=== PATIENT | male | born 1985 | race Caucasian/White ===

== ENCOUNTER → 2019-04-12 | Outpatient (CLI) | payer OTHER ==
[~2019-04-12] MED LIST: ACHD5005 PO; CYCL10TA9 PO; NAPR-243 PO
--- NOTE | 2019-04-12 17:13 | Diagnostic Imaging Report ---
INDICATION: Pain and numbness. FINDINGS: There is no pathologically displaced fat pad. The radial head and neck are intact. Articular surface is smooth. The bony alignment is normal. No radiodense loose body. IMPRESSION: Negative. Dictated by: Dictated on workstation # [id number]
== END ==
LOC: RAD 17:00
PROVIDERS: ATTEND Nurse Practitioner Family
DX: M25.522 Pain in left elbow (principal); R20.0 Anesthesia of skin
CPT/HCPCS: 73080

== ENCOUNTER 2021-03-07 16:09 | Emergency (ER) | payer OTHER ==
[~2021-03-07] VITALS: Ht 185.4 cm; Wt 90.0 kg
[2021-03-07] MEDS ORDERED: RT-ALBUTEROL/IPRATROPIUM 3 ML (DUONEB) VIAL INH ONE (16:15)
[2021-03-07] MEDS ORDERED: methylPREDNISolone 125 MG (Solu-MEDROL) VIAL IV STA (16:15)
--- NOTE | 2021-03-07 16:15 | ED Respiratory ---
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 The fumes got to him and he started having some shortness of breath and pain on inspiration in his chest. He does not have a history of lung disease nor does he smoke or vape. He does not have a fever, productive cough, rash or skin contact. Allergies and Home Medications Allergies Coded Allergies: No Known Drug Allergies (Unverified , 07/05/13) Home Medications Albuterol Sulfate 1 Puff Puff, 2 PUFF IH Q4H PRN for WHEEZING 1 PUFF = 90 MCG Prescribed by: NAOMI CASTILLO on 03/07/211834 Cyclobenzaprine Hcl 10 Mg Tablet, 1 EACH PO Q8HR PRN Prescribed by: KELLEE SAM on 07/05/13 0851 Hydrocodone Bit/Acetaminophen 1 Each Tablet, 1-2 EACH PO Q6H PRN Prescribed by: KELLEE SAM on 07/05/13 0851 Methylprednisolone 4 Mg Tab.ds.pk, 4 MG PO UD PER DOSE PACK INSTRUCTIONS Prescribed by: NAOMI CASTILLO on 03/07/211834 Naproxen 500 Mg Tablet, 1 EACH PO BID PRN Prescribed by: KELLEE SAM on 07/05/13 0851 Patient Home Medication List Home Medication List Reviewed: Yes Review of Systems Review of Systems Constitutional: No chills, No fever EENTM: No ear discharge, No ear pain Respiratory: cough (For the past 3 weeks); No phlegm; short of breath (Mild); No wheezing Cardiovascular: see HPI, chest pain; No edema, No Hx of Intervention, No palpitations, No syncope, No vascular heart diseas Gastrointestinal: No abdominal pain, No constipation Genitourinary: No discharge, No dysuria Musculoskeletal: No back pain, No joint pain Psychiatric/Neurological: Denies Anxiety, Denies Depressed All Other Systems Reviewed Negative Unless Noted: Yes Past Tregyif-Nlwtvl-Mcpyze Hx Patient Social History Drug of Choice: Denies Smoking Status: Never a Smoker Family Medical History No Pertinent Family Hx Physical Exam Vital Signs - First Documented 6/23/21 16:09 Temp 36.0 Pulse 103 Resp 18 B/P (MAP) 100/ Pulse Ox 94 O2 Delivery Room Air Capillary Refill : Height: '" Weight: 165lbs. oz. 74.898746bd; BMI Method: General Appearance: WD/WN, mild distress Eyes: Bilateral Eye Normal Inspection, Bilateral Eye PERRL, Bilateral Eye EOMI HEENT: PERRL/EOMI, normal ENT inspection, pharynx normal Neck: non-tender, full range of motion, supple, normal inspection Respiratory: no respiratory distress, no accessory muscle use, wheezing (Scant expiratory at the tops) Cardiovascular: normal peripheral pulses, regular rate, rhythm Gastrointestinal: normal bowel sounds, non tender, soft Extremities: normal inspection, normal capillary refill Neurologic/Psychiatric: alert, normal mood/affect, oriented x 3 Skin: normal color, warm/dry Progress/Results/Core Measures Suspected Sepsis SIRS Temperature: Pulse: Respiratory Rate: Laboratory Tests 03/07/21 16:32: White Blood Count 7.6 Blood Pressure / Mean: Laboratory Tests 03/07/21 16:32: Creatinine 1.33H, Platelet Count 295, Total Bilirubin 0.6 Results/Orders Lab Results Laboratory Tests Test 03/07/21 16:32 03/07/21 17:27 Range/Units White Blood Count 7.6 4.3-11.0 10^3/uL Red Blood Count 5.07 4.30-5.52 10^6/uL Hemoglobin 15.1 13.3-17.7 g/dL Hematocrit 45 40-54 % Mean Corpuscular Volume 89 80-99 fL Mean Corpuscular Hemoglobin 30 25-34 pg Mean Corpuscular Hemoglobin Concent 34 32-36 g/dL Red Cell Distribution Width 12.6 10.0-14.5 % Platelet Count 295 130-400 10^3/uL Mean Platelet Volume 9.9 9.0-12.2 fL Immature Granulocyte % (Auto) 0 % Neutrophils (%) (Auto) 64 42-75 % Lymphocytes (%) (Auto) 23 12-44 % Monocytes (%) (Auto) 10 0-12 % Eosinophils (%) (Auto) 2 0-10 % Basophils (%) (Auto) 1 0-10 % Neutrophils # (Auto) 4.9 1.8-7.8 10^3/uL Lymphocytes # (Auto) 1.8 1.0-4.0 10^3/uL Monocytes # (Auto) 0.8 0.0-1.0 10^3/uL Eosinophils # (Auto) 0.1 0.0-0.3 10^3/uL Basophils # (Auto) 0.0 0.0-0.1 10^3/uL Immature Granulocyte # (Auto) 0.0 0.0-0.1 10^3/uL Sodium Level 141 135-145 MMOL/L Potassium Level 3.7 3.6-5.0 MMOL/L Chloride Level 104 98-107 MMOL/L Carbon Dioxide Level 23 21-32 MMOL/L Anion Gap 14 5-14 MMOL/L Blood Urea Nitrogen 16 7-18 MG/DL Creatinine 1.33 H 0.60-1.30 MG/DL Estimat Glomerular Filtration Rate 60 BUN/Creatinine Ratio 12 Glucose Level 88 70-105 MG/DL Calcium Level 9.0 8.5-10.1 MG/DL Corrected Calcium 8.5-10.1 MG/DL Total Bilirubin 0.6 0.1-1.0 MG/DL Aspartate Amino Transf (AST/SGOT) 22 5-34 U/L Alanine Aminotransferase (ALT/SGPT) 43 0-55 U/L Alkaline Phosphatase 88 40-136 U/L Total Protein 7.5 6.4-8.2 GM/DL Albumin 4.6 H 3.2-4.5 GM/DL Blood Gas Puncture Site RT RAD Blood Gas Patient Temperature 36 Arterial Blood pH 7.40 7.37-7.43 Arterial Blood Partial Pressure CO2 38 35-45 MMHG Arterial Blood Partial Pressure O2 81 79-93 MMHG Arterial Blood HCO3 23 23-27 MMOL/L Arterial Blood Total CO2 24.6 21.0-31.0 MMOL/L Arterial Blood Oxygen Saturation 97 94-100 % Arterial Blood Base Excess -1.1 -2.5-2.5 MMOL/L Lukas Test YES-POS Blood Gas Ventilator Setting NO Blood Gas Inspired Oxygen ROOM AIR My Orders Orders - NAOMI CASTILLO Ekg Tracing (03/07/21 16:15) Chest 1 View, Ap/Pa Only (03/07/21 16:15) Cbc With Automated Diff (03/07/21 16:15) Comprehensive Metabolic Panel (03/07/21 16:15) Albuterol/Ipra Inhalation Soln (Duoneb I (03/07/21 16:15) Methylprednisolone Sod Succ (Solu-Medrol (03/07/21 16:15) Svn Small Volume Nebulizer (03/07/21 16:15) Communication For Respiratory (03/07/21 16:22) Arterial Blood Gas (03/07/21 17:21) Arterial Blood Draw (03/07/21 ) Medications Given in ED Current Medications Medications Dose Ordered Sig/Arcelia Route Start Time Stop Time Status Last Admin Dose Admin Albuterol/ Ipratropium 3 ml ONCE ONCE INH 03/07/21 16:15 03/07/21 16:21 DC 03/07/21 17:19 3 ML Vital Signs/I&O 03/07/21 03/07/21 03/07/21 16:09 17:20 18:49 Temp 36.0 Pulse 103 89 Resp 18 18 B/P (MAP) 100/ 136/89 Pulse Ox 94 96 95 O2 Delivery Room Air Room Air Room Air Capillary Refill : Progress Note #1: Time: 17:00 Progress Note Discussed the case with poison control and their recommendations were to consider inhalers if indicated and steroids for bronchospasms. Chest x-ray, O2 if needed. Monitor the patient until he is asymptomatic. We can consider nebulizing some sodium bicarb. The patient symptoms are mild so we ordered some DuoNeb, Solu-Medrol and some IV fluids Progress Note #2: Time: 18:32 Progress Note The patient is back to his baseline. He is not having any pain or wheezing. We will give him a spacer, prescription for albuterol and a Medrol Dosepak. Return precautions were discussed. ECG Initial ECG Impression Date: Mar 07, 2021 Initial ECG Impression Time: 16:28 Initial ECG Rate: 85 Initial ECG Rhythm: Normal Sinus Initial ECG Intervals: Normal Initial ECG Impression: Normal Initial ECG Comparisson: No Previous ECG Available Comment Normal sinus rhythm without clinically relevant ST elevation or depression Diagnostic Imaging Diagonstic Imaging: Xray Plain Films/CT/US/NM/MRI: chest Comments [facility], [place] NAME: [facility] REC#: [id number] PT STATUS: REG ER : 1985 PHYSICIAN: NAOMI CASTILLO MD ADMIT DATE: 03/07/21/ER Draft Date of Exam:03/07/21 CHEST 1 VIEW, AP/PA ONLY EXAM: CHEST 1 VIEW, AP/PA ONLY INDICATION: Inhalation of chemical. COMPARISON: Chest radiograph from 07/05/2013. FINDINGS: Normal heart size and pulmonary vascularity. No dense consolidation, pleural effusion or pneumothorax. No acute osseous findings. IMPRESSION: Negative chest. Dictated on workstation # [id number] Dict: 03/07/21 1704 Trans: 03/07/21 1708 [id number] Interpreted by: ABI ABAD MD Electronically signed by: Reviewed: Reviewed by Me Departure Impression Primary Impression: Inhalation injury due to chemical Disposition: 01 HOME, SELF-CARE Condition: Improved Departure-Patient Inst. Decision time for Depature: 18:33 Referrals: DALLAS GIL DO (PCP/Family) Primary Care Physician Patient Instructions: Smoke Inhalation (DC) Add. Discharge Instructions: Drink plenty fluids. Avoid dust or smoke or other chemical inhalation injuries in the near future. Promptly return to the ER for worsening symptoms. Follow-up with your doctor in the next week for recheck. Medrol Dosepak take as described. Albuterol 2 puffs through the spacer every 4 hours as needed for wheezing, coughing fits or other shortness of air. Scripts Methylprednisolone (Methylprednisolone Dose Pack) 4 Mg Tab.ds.pk 4 MG PO UD for 6 Days, #21 PKG 0 Refills PER DOSE PACK INSTRUCTIONS Prov: NAOMI CASTILLO 03/07/21 Albuterol Sulfate (PROAIR HFA) 1 Puff Puff 2 PUFF IH Q4H PRN for WHEEZING, #1 EA 0 Refills 1 PUFF = 90 MCG Prov: NAOMI CASTILLO 03/07/21 Work/School Note: Work Release Form Date Seen in the Emergency Department: Mar 07, 2021 Return to Work: Mar 09, 2021 Restrictions: No Restrictions Copy Copies To 1: DALLAS GIL TITUS J Mar 07, 2021 16:15
[2021-03-07 16:41] LABS: BASOPHILS % (AUTO) 1 % (0-10); EOSINOPHILS # (AUTO) 0.1 10^3/uL (0.0-0.3); EOSINOPHILS % (AUTO) 2 % (0-10); HEMATOCRIT 45 % (40-54); HEMOGLOBIN 15.1 g/dL (13.3-17.7); LYMPHOCYTES # (AUTO) 1.8 10^3/uL (1.0-4.0); LYMPHOCYTES % (AUTO) 23 % (12-44); MEAN CORPUSCULAR HEMOGLOBIN 30 pg (25-34); MEAN CORPUSCULAR HGB CONC 34 g/dL (32-36); MEAN CORPUSCULAR VOLUME 89 fL (80-99); MEAN PLATELET VOLUME 9.9 fL (9.0-12.2); MONOCYTES # (AUTO) 0.8 10^3/uL (0.0-1.0); MONOCYTES % (AUTO) 10 % (0-12); NEUTROPHILS # (AUTO) 4.9 10^3/uL (1.8-7.8); NEUTROPHILS % (AUTO) 64 % (42-75); PLATELET COUNT 295 10^3/uL (130-400); WHITE BLOOD COUNT 7.6 10^3/uL (4.3-11.0)
[2021-03-07 16:52] LABS: ALBUMIN 4.6 GM/DL (3.2-4.5); CHLORIDE 104 MMOL/L (98-107); POTASSIUM 3.7 MMOL/L (3.6-5.0); SODIUM 141 MMOL/L (135-145)
[2021-03-07 16:55] LABS: GLUCOSE 88 MG/DL (70-105); TOTAL PROTEIN 7.5 GM/DL (6.4-8.2)
[2021-03-07 16:56] LABS: CARBON DIOXIDE 23 MMOL/L (21-32)
[2021-03-07 16:57] LABS: BILIRUBIN,TOTAL 0.6 MG/DL (0.1-1.0)
[2021-03-07 16:58] LABS: ALKALINE PHOSPHATASE 88 U/L (40-136); CREATININE SERUM 1.33 MG/DL (0.60-1.30); GFR ESTIMATED 60
[2021-03-07 17:00] LABS: BUN/CREATININE RATIO 12
[2021-03-07 17:01] LABS: ALANINE AMINOTRANSFERASE 43 U/L (0-55)
--- NOTE | 2021-03-07 17:08 | Diagnostic Imaging Report ---
EXAM: CHEST 1 VIEW, AP/PA ONLY INDICATION: Inhalation of chemical. COMPARISON: Chest radiograph from 07/05/2013. FINDINGS: Normal heart size and pulmonary vascularity. No dense consolidation, pleural effusion or pneumothorax. No acute osseous findings. IMPRESSION: Negative chest. Dictated by: Dictated on workstation # [id number]
[2021-03-07 17:30] LABS: ABG BASE EXCESS -1.1 MMOL/L (-2.5-2.5); ABG OXYGEN SATURATION 97 % (94-100); ABG PCO2 38 MMHG (35-45); ABG PO2 81 MMHG (79-93); ABG TCO2 24.6 MMOL/L (21.0-31.0)
[2021-03-07 17:34] LABS: ALLENS TEST YES-POS; INSPIRED O2 ROOM AIR; PATIENT TEMP 36; VENTILATOR NO
[2021-03-07] MEDS ORDERED: METH4TAB10 PO (18:35)
[2021-03-07] MEDS ORDERED: RT-ALBUINH IH (18:35)
[2021-03-07 18:49] VITALS: BP 136/89
== END 2021-03-07 18:49 | disposition home or self-care (01) ==
LOC: EDUNIT# 16:09 → ER 16:10
DX: J70.5 Respiratory conditions due to smoke inhalation (principal); Z79.52 Long term (current) use of systemic steroids
CPT/HCPCS: 36415; 36600; 71045; 80053; 82805; 85025; 93005; 94640

== ENCOUNTER 2022-04-16 14:37 | Emergency (ER) | payer OTHER ==
[~2022-04-16] VITALS: Ht 187.9 cm; Wt 91.6 kg
[~2022-04-16 14:37] MED LIST changes: +METH4TAB10 PO; +RT-ALBUINH IH
--- NOTE | 2022-04-16 14:49 | ED Neurological Problem ---
General Chief Complaint: Neuro-Stroke Like Symptoms Stated Complaint: LEFT EYE BLURRY - LEFT SIDE OF FACE NUMBNESS Source: patient Exam Limitations: no limitations History of Present Illness Date Seen by Provider: Apr 16, 2022 Time Seen by Provider: 14:42 Initial Comments Patient is a 37-year-old male who presents to the emergency department today, chief complaint visual loss lateral half of his left eye/visual changes over the course of the last 10 hours, paresthesias of the left face and shoulder and a feeling like his left face is drooping. Patient states that he woke up with symptoms this morning around 4 AM. They have waxed and waned since then. He has had a mild headache. He did take some ibuprofen this afternoon. He has never had symptoms like this before. He states at one point during the course of the day he had complete visual field loss of the left eye. He has no chronic longstanding medical conditions, no hypertension, diabetes. He is not a smoker. No family history of cardiovascular disease. No family history of stroke. He has had no recent illnesses. He states that he works in construction and has recently been having more intense leg cramps. This was at its peak on Friday. No fevers, chills. No productive cough. No nausea vomiting or diarrhea. He states his urine is mamta in color. No dysuria, urgency or frequency. No black or bloody stools. He did not take anything for the symptoms today. His primary care doctor is Dr. LIRA. At the time of my initial evaluation he is asymptomatic has no visual field complaints. He does continue to have a little paresthesia on the left side of his face. At no time today did not have any problem breathing, swallowing or speaking. All other review of systems reviewed and negative except as stated Timing/Duration: waxing and waning, other (10 hours) Severity: moderate Associated Symptoms: paresthesia (left face; "droopy" left face), vision changes Allergies and Home Medications Allergies Coded Allergies: No Known Drug Allergies (Unverified , 07/05/13) Patient Home Medication List Home Medication List Reviewed: Yes Albuterol Sulfate (Proair Hfa) 1 Puff Puff, 2 PUFF IH Q4H PRN for WHEEZING Prescribed by: NAOMI CASTILLO on 03/07/21 7622 Cyclobenzaprine Hcl (Cyclobenzaprine Hcl) 10 Mg Tablet, 1 EACH PO Q8HR PRN Prescribed by: KELLEE SAM on 07/05/13850 Hydrocodone Bit/Acetaminophen (Lortab 5 Mg Tablet) 1 Each Tablet, 1-2 EACH PO Q6H PRN Prescribed by: KELLEE SAM on 07/05/13850 Methylprednisolone (Methylprednisolone Dose Pack) 4 Mg Tab.ds.pk, 4 MG PO UD Prescribed by: NAOMI CASTILLO on 03/07/211834 Naproxen (Naprosyn) 500 Mg Tablet, 1 EACH PO BID PRN Prescribed by: KELLEE SAM on 07/05/13850 Review of Systems Review of Systems Constitutional: see HPI Eyes: Blurred Vision Ears, Nose, Mouth, Throat: no symptoms reported Respiratory: no symptoms reported Cardiovascular: no symptoms reported Gastrointestinal: no symptoms reported Genitourinary: no symptoms reported Musculoskeletal: no symptoms reported Skin: no symptoms reported Psychiatric/Neurological: Headache (mild), Tingling (left face) All Other Systems Reviewed Negative Unless Noted: Yes Past Tnaxvif-Cdgukp-Kubrko Hx Past Medical History Surgeries: Yes Respiratory: No Cardiac: No Neurological: No Gastrointestinal: No Endocrine: No Family Medical History No Pertinent Family Hx Physical Exam Vital Signs Vital Signs - First Documented 04/16/22 14:39 Temp 36.4 Resp 15 B/P (MAP) 153/109 (124) Pulse Ox 98 O2 Delivery Room Air Capillary Refill : Height, Weight, BMI Height: '" Weight: 165lbs. oz. 74.282455qd; 26.00 BMI Method: General Appearance: WD/WN, no apparent distress HEENT: PERRL/EOMI, pharynx normal Neck: full range of motion, supple, normal inspection Respiratory: lungs clear, normal breath sounds, no respiratory distress, no accessory muscle use Cardiovascular: regular rate, rhythm, no murmur Peripheral Pulses: 2+ Radial Pulses (R), 2+ Radial Pulses (L) Gastrointestinal: normal bowel sounds, non tender, soft Extremities: normal range of motion, non-tender, normal inspection, no pedal edema, normal capillary refill Neurologic/Psychiatric: machine buffer II-XII nml as tested, no motor/sensory deficits, alert, normal mood/affect, oriented x 3 Crainal Nerves: normal hearing, normal speech, PERRL; No abnormal eye position, No abnormal pupil position, No abnormal speech, No facial asymmetry, No facial droop; facial paresthesias; No facial weakness, No gaze palsy Coordination/Gait: normal finger to nose Motor/Sensory: no motor deficit, no sensory deficit, no pronator drift Skin: normal color, warm/dry Stroke Onset of Symptoms Date of Onset of Symptoms: Apr 16, 2022 Time of Symptom Onset: 04:00 Onset of Symptoms: Yes NIH Stroke Scale Assessment Select: Initial Level of Consciousness: 0=Alert (0), Level of Consciousness- Questions: 0=Answers both month/age (0), LOC Commands: 0=Performs both tasks (0), Visual Wilkerson: 0=No visual loss (0), Facial Movement (Facial Paresis): 0=Normal symmetrical mnt (0), Motor Function-Arms Right: 0=No drift (0), Motor Function-Arms Left: 0=No drift (0), Motor Function-Legs Right: 0=No drift (0), Motor Function-Legs Left: 0=No drift (0), Limb Ataxia: 0=Absent (0), Sensory: 0=Normal:no loss (0), Best Language: 0=No aphasia (0), Dysarthria: 0=Normal (0), Extinction & Inattention: 0=No abnormality (0), Total: 0 Stroke Thrombolytic Exclusion Age 18 or Over: Yes Acute intenal hemorrhage: No History of CVA: No Uncontrolled Coagulation Defec: No Intracranial Hemorrhage: No Severe Hypertension: No GI or Bleed: No Subarachnoid Hemorrhage: No Intracranial Neoplasm/Aneurysm: No Oral Anticoagulants: No Surgery or Trauma: No Puncture of Non-Compressible V: No Recent CPR: No Diabetic Hemorrhagic Retinopat: No Organ Biopsy: No Recent Obstetric Delivery: No Glucose: No Significant Hepatic Dysfunctio: No NIH Stoke Scale >22: No Bacterial Endocarditis: No Pericarditis: No Improving Symptoms: No Platelets: No TPA Contraindication: Yes IV - TPa Received IV - TPa Procedure Performed?: No Progress/Results/Core Measures Results/Orders Lab Results Laboratory Tests Test 04/16/22 14:40 04/16/22 14:44 04/16/22 15:06 Range/Units White Blood Count 10.7 4.3-11.0 10^3/uL Red Blood Count 5.17 4.30-5.52 10^6/uL Hemoglobin 15.6 13.3-17.7 g/dL Hematocrit 46 40-54 % Mean Corpuscular Volume 89 80-99 fL Mean Corpuscular Hemoglobin 30 25-34 pg Mean Corpuscular Hemoglobin Concent 34 32-36 g/dL Red Cell Distribution Width 13.2 10.0-14.5 % Platelet Count 319 130-400 10^3/uL Mean Platelet Volume 9.6 9.0-12.2 fL Immature Granulocyte % (Auto) 0 % Neutrophils (%) (Auto) 68 42-75 % Lymphocytes (%) (Auto) 22 12-44 % Monocytes (%) (Auto) 8 0-12 % Eosinophils (%) (Auto) 2 0-10 % Basophils (%) (Auto) 1 0-10 % Neutrophils # (Auto) 7.2 1.8-7.8 X 10^3 Lymphocytes # (Auto) 2.4 1.0-4.0 X 10^3 Monocytes # (Auto) 0.8 0.0-1.0 X 10^3 Eosinophils # (Auto) 0.2 0.0-0.3 10^3/uL Basophils # (Auto) 0.1 0.0-0.1 10^3/uL Immature Granulocyte # (Auto) 0.0 0.0-0.1 10^3/uL Prothrombin Time 12.9 12.2-14.7 SEC INR Comment 0.9 0.8-1.4 Activated Partial Thromboplast Time 27 24-35 SEC D-Dimer < 0.27 0.00-0.49 UG/ML Sodium Level 140 135-145 MMOL/L Potassium Level 3.8 3.6-5.0 MMOL/L Chloride Level 105 98-107 MMOL/L Carbon Dioxide Level 23 21-32 MMOL/L Anion Gap 12 5-14 MMOL/L Blood Urea Nitrogen 21 H 7-18 MG/DL Creatinine 1.22 0.60-1.30 MG/DL Estimat Glomerular Filtration Rate 77 BUN/Creatinine Ratio 17 Glucose Level 101 70-105 MG/DL Calcium Level 9.2 8.5-10.1 MG/DL Corrected Calcium 8.5-10.1 MG/DL Total Bilirubin 1.1 H 0.1-1.0 MG/DL Aspartate Amino Transf (AST/SGOT) 20 5-34 U/L Alanine Aminotransferase (ALT/SGPT) 46 0-55 U/L Alkaline Phosphatase 77 40-136 U/L Total Creatine Kinase 157 30-200 U/L Troponin I < 0.028 <0.028 NG/ML Total Protein 7.4 6.4-8.2 GM/DL Albumin 4.7 H 3.2-4.5 GM/DL Glucometer 106 70-110 MG/DL Urine Color YELLOW Urine Clarity CLEAR Urine pH 6.0 5-9 Urine Specific Foley >=1.030 1.016-1.022 Urine Protein NEGATIVE NEGATIVE Urine Glucose (UA) NEGATIVE NEGATIVE Urine Ketones NEGATIVE NEGATIVE Urine Nitrite NEGATIVE NEGATIVE Urine Bilirubin NEGATIVE NEGATIVE Urine Urobilinogen 1.0 < = 1.0 MG/DL Urine Leukocyte Esterase NEGATIVE NEGATIVE Urine RBC (Auto) NEGATIVE NEGATIVE Urine RBC NONE /HPF Urine WBC NONE /HPF Urine Squamous Epithelial Cells 0-2 /HPF Urine Crystals NONE /LPF Urine Bacteria NEGATIVE /HPF Urine Casts NONE /LPF Urine Mucus NEGATIVE /LPF Urine Culture Indicated NO Urine Opiates Screen NEGATIVE NEGATIVE Urine Oxycodone Screen NEGATIVE NEGATIVE Urine Methadone Screen NEGATIVE NEGATIVE Urine Propoxyphene Screen NEGATIVE NEGATIVE Urine Barbiturates Screen NEGATIVE NEGATIVE Ur Tricyclic Antidepressants Screen NEGATIVE NEGATIVE Urine Phencyclidine Screen NEGATIVE NEGATIVE Urine Amphetamines Screen NEGATIVE NEGATIVE Urine Methamphetamines Screen NEGATIVE NEGATIVE Urine Benzodiazepines Screen NEGATIVE NEGATIVE Urine Cocaine Screen NEGATIVE NEGATIVE Urine Cannabinoids Screen NEGATIVE NEGATIVE My Orders Orders - MARCIN ALAN MD Cbc With Automated Diff (04/16/22 14:43) Protime With Inr (04/16/22 14:43) Partial Thromboplastin Time (04/16/22 14:43) Comprehensive Metabolic Panel (04/16/22 14:43) Fibrin Degradation Products (04/16/22 14:43) Troponin I Silvia (04/16/22 14:43) Ua Culture If Indicated (04/16/22 14:43) Chest 1 View, Ap/Pa Only (04/16/22 14:43) Ekg Tracing (04/16/22 14:43) Nothing By Mouth (04/16/22 Lunch) Accucheck Stat ONCE (04/16/22 14:43) Ed Iv/Invasive Line Start (04/16/22 14:43) Ed Iv/Invasive Line Start (04/16/22 14:43) Vital Signs Stroke Patient Q15M (04/16/22 14:43) Ct Head Wo-R/O Stroke (04/16/22 14:43) O2 (04/16/22 14:43) Intake & Output 06,14,22 (04/16/22 14:43) Monitor-Rhythm Ecg Trace Only (04/16/22 14:43) Dysphagia Screening Tool Q10MX1 (04/16/22 14:43) Post Thrombolytic Adminstratio (04/16/22 14:43) Drug Screen Stat (Urine) (04/16/22 14:43) Creatine Kinase (04/16/22 15:20) Ct Angio Head/Neck (04/16/22 15:31) Iohexol Injection (Omnipaque 350 Mg/Ml 1 (04/16/22 16:30) Received Contrast (Hold Metformin- Contr (04/16/22 16:30) Ns (Ivpb) (Sodium Chloride 0.9% Ivpb Bag (04/16/22 16:30) Medications Given in ED Current Medications Medications Dose Ordered Sig/Arcelia Route Start Time Stop Time Status Last Admin Dose Admin Iohexol 75 ml ONCE ONCE IV 04/16/22 16:30 04/16/22 16:31 DC 04/16/22 16:54 75 ML Sodium Chloride 100 ml ONCE ONCE IV 04/16/22 16:30 04/16/22 16:31 DC 04/16/22 16:54 100 ML Vital Signs/I&O 04/16/22 04/16/22 14:39 17:56 Temp 36.4 36.4 Resp 15 15 B/P (MAP) 153/109 (124) 135/85 Pulse Ox 98 97 O2 Delivery Room Air Room Air Progress Progress Note : Time: 17:37 Progress Note Case discussed with Dr. Caputo. Due to the patient's age and lack of comorbidities, decent blood pressure, and work-up today, it is more likely the patient is experiencing symptoms related to "complex migraine". He has had 1 recurrence of the episode of "blurry vision"/vision loss. This was brief and lasted less than about 15 minutes. She recommends follow-up with Dr. Lira's nurse practitioner this week. He does likely need an outpatient MRI. She also recommended close follow-up with an eye exam with the [facility] this week. I discussed his case and presentation and findings with Dr. Kerr. She states they will be able to see him tomorrow in clinic. I gave her his contact information so that the clinic can reach out in the morning with an appointment time for him tomorrow. He has been updated on all of the findings from today's visit. He has no clinical or objective findings to warrant further studies from the emergency department. Nor does he at this time require admission. He states that he will follow-up as suggested. All questions are sought and answered. Patient is stable for discharge. Initial ECG Impression Date: Apr 16, 2022 Initial ECG Impression Time: 15:03 Initial ECG Rate: 82 Initial ECG Rhythm: Normal Sinus Initial ECG Intervals: Normal Initial ECG Impression: Normal Diagnostic Imaging Diagonstic Imaging: CT Comments [facility] [place] [place] NAME: BLAS BERG [facility] REC#: [id number] PT STATUS: REG ER : 1985 PHYSICIAN: MARCIN ALAN MD ADMIT DATE: 04/16/22/ER Draft Date of Exam:04/16/22 CT HEAD WO-R/O STROKE INDICATION: Neuro deficit loss of vision of the left eye. Left arm numbness. Headache TECHNIQUE: Routine non contrast-enhanced axial images were obtained from the skull base to the vertex. Auto Exposure Controls were utilized during the CT exam to meet ALARA standards for radiation dose reduction COMPARISON: None. FINDINGS: The ventricles and cortical sulci are normal in size and contour. There is no midline shift or mass-effect. No acute intra-axial hemorrhage is seen. There are no abnormal areas of increased or decreased density to suggest acute hemorrhage or edema. No extra-axial masses or collections are present. The bony calvarium is intact. The visualized paranasal sinuses show debris within the left maxillary sinus. The mastoid air cells are clear. IMPRESSION: 1. No acute intracranial abnormality. No CT evidence of mass, acute infarct or intracranial hemorrhage. Called to Tarik at 3:09 p.m. by marvin. Dictated on workstation # [id number] Dict: 04/16/22 1501 Trans: 04/16/22 1511 CVB [id number] Interpreted by: DENVER WARREN MD Electronically signed by: Diagonstic Imaging: Xray Plain Films/CT/US/NM/MRI: chest Comments [facility] [place] NAME: BLAS BERG [facility] REC#: [id number] PT STATUS: REG ER : 1985 PHYSICIAN: MARCIN ALAN MD ADMIT DATE: 04/16/22/ER Draft Date of Exam:04/16/22 CHEST 1 VIEW, AP/PA ONLY INDICATION: Left arm numbness, head pain. FINDINGS: The lungs are clear. No failure, effusion or pneumothorax. IMPRESSION: No acute appearing abnormality. Dictated on workstation # [id number] Dict: 04/16/22 1502 Trans: 04/16/22 1508 [facility] [id number] Interpreted by: NANCI ASNTOYO Electronically signed by: Diagonstic Imaging: CT Comments [facility] [place] NAME: BLAS BERG [facility] REC#: [id number] PT STATUS: REG ER : 1985 PHYSICIAN: MARCIN ALAN MD ADMIT DATE: 04/16/22/ER Signed Date of Exam:04/16/22 CT ANGIO HEAD/NECK CLINICAL INDICATION: Patient complains of trouble seeing out of left eye. Patient has left arm numbness and feeling limp. Patient has mild headache and states left side of face feels drooping and numb since 4:00 a.m. EXAMS: 1: Head CT with and without IV contrast. Auto Exposure Controls were utilized during the CT exam to meet ALARA standards for radiation dose reduction. 2: CT angiogram of the head and neck performed with 100 cc of Omnipaque 350 IV contrast. Sagittal and coronal MIP reformations were created for better visualization of vascular anatomy. CT angiogram was post-processed using RAPID LVO detection to include quantitative measurements of cerebral blood flow and automated results notification to the stroke and/or neurointerventional team. COMPARISON: Head CT without contrast dated 04/16/2022. FINDINGS: Head CT: There is no evidence of acute cerebral infarct, intracranial hemorrhage, or gross mass effect. There is no abnormal IV contrast enhancement. The brain parenchymal volume appears appropriate for patient's age. There is normal barfield-white matter distinction. There is no significant midline shift or herniation. There is no evidence of hydrocephalus. The basal cisterns are unremarkable. The skull, extracranial soft tissue, and orbits are unremarkable. There is moderate mucosal thickening involving the left maxillary sinus. There is mild mucosal thickening involving the ethmoid sinus. Temporal bones show no significant abnormality. CT Angiogram: There is dense contrast bolus within the left subclavian vein and innominate vein, which causes streak artifact obscuring portions of the aortic arch and proximal great vessels. There is common origin of the brachiocephalic artery and left common carotid consistent with bovine arch. The bilateral subclavian vein, brachiocephalic artery, bilateral common carotid arteries, bilateral ECA, and bilateral cervical ICA are patent. The petrous, cavernous, and supraclinoid ICA are patent. The bilateral ACAs and distal branches are patent. The bilateral MCAs and distal branches are patent. The bilateral cervical vertebral arteries are patent. The bilateral PICA, bilateral intradural vertebral arteries, basilar artery, bilateral superior cerebellar arteries, and bilateral powder worker and distal branches are patent. The neck soft tissue structures show no significant abnormality. Visualized upper lung wilkerson are clear. Cervical spine shows no significant abnormality. IMPRESSION: 1: Paranasal sinus disease. Otherwise, unremarkable CT scan of the brain. 2: Unremarkable CT angiogram of the [place] of [place] and neck. There is no large vessel occlusion. Results of this report were discussed with Dr. Marcin Alan via the telephone on 04/16/2022 at 1705 hours. Dictated by: Dictated on workstation # [id number] Dict: 04/16/221652 Trans: 04/16/221711 [id number] Interpreted by: CHACHO KHAN MD Electronically signed by: CHACHO KHAN MD 04/16/221711 Departure Impression Primary Impression: Transient vision disturbance of left eye Additional Impression: Borderline high blood pressure Disposition: 01 HOME, SELF-CARE Condition: Stable Departure-Patient Inst. Decision time for Depature: 17:40 Referrals: ZORA BAER OD, JACQUELINE S DO (PCP/Family) Primary Care Physician Patient Instructions: High Blood Pressure ED Add. Discharge Instructions: You will need follow-up with Dr. Lira's office this week. You likely do need an outpatient MRI to further evaluate these episodes of vision loss that you are having from the left eye. You also need a little bit of follow-up regarding your borderline high blood pressure today Dr. Caputo who is currently on-call for Dr. LIRA also recommended close follow-up with an eye exam. I spoke with Dr. Kerr at the [facility]. Her office will reach out to you in the morning with an appointment time tomorrow. Please keep this appointment tomorrow. In the meantime if you experience worsening vision loss, worsening headache, weakness or loss of function in your arm or leg please come back to the emergency department as soon as possible for reevaluation. I would suggest you take some naproxen or Aleve, 2 tablets with food twice daily over the course of the next couple of days as the symptoms could be a symptom of what is called a "complex migraine". These migraines are often characterized by symptoms that mimic stroke. If you have any other emergent, concerning symptoms please come back to the e mergency room for reevaluation. Copy Copies To 1: DALLAS LIRA DO Copies To 2: ZORA BAER OD, KATHRYN M MD Apr 16, 2022 14:49
[2022-04-16 14:55] LABS: BASOPHILS # (AUTO) 0.1 10^3/uL (0.0-0.1); BASOPHILS % (AUTO) 1 % (0-10); EOSINOPHILS # (AUTO) 0.2 10^3/uL (0.0-0.3); EOSINOPHILS % (AUTO) 2 % (0-10); HEMATOCRIT 46 % (40-54); HEMOGLOBIN 15.6 g/dL (13.3-17.7); LYMPHOCYTES # (AUTO) 2.4 X 10^3 (1.0-4.0); LYMPHOCYTES % (AUTO) 22 % (12-44); MEAN CORPUSCULAR HEMOGLOBIN 30 pg (25-34); MEAN CORPUSCULAR HGB CONC 34 g/dL (32-36); MEAN CORPUSCULAR VOLUME 89 fL (80-99); MEAN PLATELET VOLUME 9.6 fL (9.0-12.2); MONOCYTES # (AUTO) 0.8 X 10^3 (0.0-1.0); MONOCYTES % (AUTO) 8 % (0-12); NEUTROPHILS # (AUTO) 7.2 X 10^3 (1.8-7.8); NEUTROPHILS % (AUTO) 68 % (42-75); PLATELET COUNT 319 10^3/uL (130-400); WHITE BLOOD COUNT 10.7 10^3/uL (4.3-11.0)
--- NOTE | 2022-04-16 15:09 | Diagnostic Imaging Report ---
INDICATION: Left arm numbness, head pain. FINDINGS: The lungs are clear. No failure, effusion or pneumothorax. IMPRESSION: No acute appearing abnormality. Dictated by: Dictated on workstation # [id number]
[2022-04-16 15:11] LABS: BILIRUBIN,URINE NEGATIVE (NEGATIVE); CLARITY,URINE CLEAR; COLOR,URINE YELLOW; GLUCOSE, URINE (UA) NEGATIVE (NEGATIVE); KETONES,URINE NEGATIVE (NEGATIVE); LEUKOCYTE ESTERASE ,URINE NEGATIVE (NEGATIVE); NITRITE,URINE NEGATIVE (NEGATIVE); PROTEIN,URINE NEGATIVE (NEGATIVE)
--- NOTE | 2022-04-16 15:11 | Diagnostic Imaging Report ---
INDICATION: Neuro deficit loss of vision of the left eye. Left arm numbness. Headache TECHNIQUE: Routine non contrast-enhanced axial images were obtained from the skull base to the vertex. Auto Exposure Controls were utilized during the CT exam to meet ALARA standards for radiation dose reduction COMPARISON: None. FINDINGS: The ventricles and cortical sulci are normal in size and contour. There is no midline shift or mass-effect. No acute intra-axial hemorrhage is seen. There are no abnormal areas of increased or decreased density to suggest acute hemorrhage or edema. No extra-axial masses or collections are present. The bony calvarium is intact. The visualized paranasal sinuses show debris within the left maxillary sinus. The mastoid air cells are clear. IMPRESSION: 1. No acute intracranial abnormality. No CT evidence of mass, acute infarct or intracranial hemorrhage. Called to Tarik at 3:09 p.m. by cvb. Dictated by: Dictated on workstation # [id number]
[2022-04-16 15:20] LABS: ALANINE AMINOTRANSFERASE 46 U/L (0-55); ALBUMIN 4.7 GM/DL (3.2-4.5); ALKALINE PHOSPHATASE 77 U/L (40-136); BILIRUBIN,TOTAL 1.1 MG/DL (0.1-1.0); BUN/CREATININE RATIO 17; CALCIUM 9.2 MG/DL (8.5-10.1); CARBON DIOXIDE 23 MMOL/L (21-32); CHLORIDE 105 MMOL/L (98-107); CREATININE SERUM 1.22 MG/DL (0.60-1.30); GFR ESTIMATED 77; GLUCOSE 101 MG/DL (70-105); POTASSIUM 3.8 MMOL/L (3.6-5.0); SODIUM 140 MMOL/L (135-145); TOTAL PROTEIN 7.4 GM/DL (6.4-8.2)
[2022-04-16 15:24] LABS: AMPHETAMINE SCREEN, URINE NEGATIVE (NEGATIVE); BARBITURATE SCREEN URINE NEGATIVE (NEGATIVE); BENZODIAZEPINES SCREEN URINE NEGATIVE (NEGATIVE); CANNABINOID SCREEN, URINE NEGATIVE (NEGATIVE); COCAINE SCREEN URINE NEGATIVE (NEGATIVE); METHADONE STAT NEGATIVE (NEGATIVE); OPIATE SCREEN URINE NEGATIVE (NEGATIVE); OXYCODONE STAT NEGATIVE (NEGATIVE); PROPOXYPHENE STAT NEGATIVE (NEGATIVE); TRICYCLIC ANTIDEPRESSANTS SCRE NEGATIVE (NEGATIVE)
[2022-04-16 15:27] LABS: FIBRIN DEGRADATION PRODUCTS < 0.27 UG/ML (0.00-0.49)
[2022-04-16 15:28] LABS: INR 0.9 (0.8-1.4); PARTIAL THROMBOPLASTIN TIME 27 SEC (24-35); PROTHROMBIN TIME PATIENT 12.9 SEC (12.2-14.7)
[2022-04-16 15:29] LABS: BACTERIA,URINE NEGATIVE /HPF; SQUAMOUS EPITHELIAL CELL,UR 0-2 /HPF
[2022-04-16] MEDS ORDERED: HOLD METFORMIN - RECEIVED CONTRAST 20 ML VIAL IV SCH (16:30)
[2022-04-16] MEDS ORDERED: IOHEXOL 350 MG/ML 100 ML (OMNIPAQUE 350) VIAL IV ONE (16:30)
[2022-04-16] MEDS ORDERED: NS 100 ML (IVPB) BAG IV ONE (16:30)
--- NOTE | 2022-04-16 17:12 | Diagnostic Imaging Report ---
CLINICAL INDICATION: Patient complains of trouble seeing out of left eye. Patient has left arm numbness and feeling limp. Patient has mild headache and states left side of face feels drooping and numb since 4:00 a.m. EXAMS: 1: Head CT with and without IV contrast. Auto Exposure Controls were utilized during the CT exam to meet ALARA standards for radiation dose reduction. 2: CT angiogram of the head and neck performed with 100 cc of Omnipaque 350 IV contrast. Sagittal and coronal MIP reformations were created for better visualization of vascular anatomy. CT angiogram was post-processed using RAPID LVO detection to include quantitative measurements of cerebral blood flow and automated results notification to the stroke and/or neurointerventional team. COMPARISON: Head CT without contrast dated 04/16/2022. FINDINGS: Head CT: There is no evidence of acute cerebral infarct, intracranial hemorrhage, or gross mass effect. There is no abnormal IV contrast enhancement. The brain parenchymal volume appears appropriate for patient's age. There is normal barfield-white matter distinction. There is no significant midline shift or herniation. There is no evidence of hydrocephalus. The basal cisterns are unremarkable. The skull, extracranial soft tissue, and orbits are unremarkable. There is moderate mucosal thickening involving the left maxillary sinus. There is mild mucosal thickening involving the ethmoid sinus. Temporal bones show no significant abnormality. CT Angiogram: There is dense contrast bolus within the left subclavian vein and innominate vein, which causes streak artifact obscuring portions of the aortic arch and proximal great vessels. There is common origin of the brachiocephalic artery and left common carotid consistent with bovine arch. The bilateral subclavian vein, brachiocephalic artery, bilateral common carotid arteries, bilateral ECA, and bilateral cervical ICA are patent. The petrous, cavernous, and supraclinoid ICA are patent. The bilateral ACAs and distal branches are patent. The bilateral MCAs and distal branches are patent. The bilateral cervical vertebral arteries are patent. The bilateral PICA, bilateral intradural vertebral arteries, basilar artery, bilateral superior cerebellar arteries, and bilateral ordering box operator and distal branches are patent. The neck soft tissue structures show no significant abnormality. Visualized upper lung gandara are clear. Cervical spine shows no significant abnormality. IMPRESSION: 1: Paranasal sinus disease. Otherwise, unremarkable CT scan of the brain. 2: Unremarkable CT angiogram of the [place] of [place] and neck. There is no large vessel occlusion. Results of this report were discussed with Dr. Ivelisse Anthony via the telephone on 04/16/2022 at 1705 hours. Dictated by: Dictated on workstation # [id number]
[2022-04-16 17:56] VITALS: BP 135/85
== END 2022-04-16 17:56 | disposition home or self-care (01) ==
LOC: EDUNIT# 14:37 → ER 14:38
DX: H53.122 Transient visual loss, left eye (principal); R03.0 Elevated blood-pressure reading, without diagnosis of hypertension
CPT/HCPCS: 36415; 70450; 70496; 70498; 71045; 80053; 80306; 81000; 82550; 82947; 84484; 85025; 85379; 85610; 85730; 93005; 93041

== ENCOUNTER → 2022-04-24 | Outpatient (CLI) | payer OTHER ==
[~2022-04-24] MED LIST changes: +GADOTERATE 0.5 MMOL/ML (CLARISCAN) 20 ML VIAL IV ONE
--- NOTE | 2022-04-24 11:06 | Diagnostic Imaging Report ---
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 COMPARISON: Exam is correlated with a CT angiogram neck and head performed 04/16/2022. No prior MR. FINDINGS: There are no foci of abnormal diffusion restriction. There were no findings of an acute or subacute ischemic infarct. There was no focal nor generalized cerebral edema. No demyelinating disease, plaque, or white matter pathology. There is no hemorrhage. There are no abnormal extra-axial collections. There is membrane thickening, mucus retention cyst, and likely fluid in the left maxillary sinus. There is trace membrane thickening in the right maxillary sinus as well as mild membrane disease in the ethmoid air cells and frontal sinuses. There is no mastoid effusion. The orbital contents themselves are unremarkable. The extraocular muscles and their tendinous attachments as well as the optic nerves and globes are unremarkable. No proptosis. There is no sellar or suprasellar mass or mass effect. No impingement upon the chiasm nor displacement of the infundibulum. Flow voids of the cavernous segments of the intracranial carotids are maintained, and no abnormality at the level of the cavernous sinus is found. Brainstem, posterior fossa, and paramesencephalic cisterns appeared normal. After contrast was administered, there was no abnormal orbital, parenchymal, or meningeal enhancement. There was no evidence for mass. IMPRESSION: Paranasal sinus disease, otherwise normal pre- and lehm-[id number]-xpejxsct MRI brain with thin slices through the orbits. Dictated by: Dictated on workstation # [id number]
== END ==
LOC: RAD 08:16
DX: H53.122 Transient visual loss, left eye (principal); H46.9 Unspecified optic neuritis; J34.9 Unspecified disorder of nose and nasal sinuses
CPT/HCPCS: 70553